=== PATIENT | female | born 1940 | race Caucasian/White ===

== ENCOUNTER 2018-01-15 10:10 | Inpatient (IN) | payer OTHER ==
[~2018-01-15] VITALS: Ht 152.4 cm; Wt 160.0 kg
[~2018-01-15 10:10] MED LIST: BACLOFEN10 MG PO; CALCIUM600 MG; CLOPIDOGREL BIS75 MG PO; COZAAR25 MG PO; HYDROCHLOROTH12.5 M1 PO; METFORMIN HCL500 M2; MICROZIDE12.5 MG PO; OMEGA-31000 MG; SERTRALINE HCL25 MG PO; SERTRALINE HCL50 MG PO; SIMVASTATIN20 MG PO; SIMVASTATIN40 MG PO; ZOLOFT25 MG PO
[2018-01-15] MEDS ORDERED: HYDROCHLOROTH12.5 MG (10:22)
[2018-01-15] MEDS ORDERED: SENNA LAXATIVE8.6 MG (10:23)
[2018-01-15] MEDS ORDERED: BUSPIRONE HCL5 MG (10:24)
[2018-01-18] MEDS ORDERED: INVANZ1 GM IV (09:38)
[2018-01-18] MEDS ORDERED: METFORMIN HCL500 MG PO (09:39)
== END 2018-01-18 19:42 | disposition home or self-care (01) | DRG 690 ==
LOC: ER 10:10 → MEDI 15:22 → SEC-K 15:22 → MEDI 17:58
PROC: BW28ZZZ Computerized Tomography (CT Scan) of Head (ICD-10-PCS; principal; 2018-01-15)
DX: N39.0 Urinary tract infection, site not specified (principal); I69.351 Hemiplegia and hemiparesis following cerebral infarction affecting right dominant side; E86.0 Dehydration; R63.0 Anorexia; Z74.01 Bed confinement status; G35 Multiple sclerosis; E78.4 Other hyperlipidemia; F32.89 Other specified depressive episodes; E11.65 Type 2 diabetes mellitus with hyperglycemia